=== PATIENT | male | born 1935 | race Caucasian/White ===

== ENCOUNTER 2021-09-22 11:24 | Inpatient (IN) | payer MEDICARE, BC ==
[~2021-09-22] VITALS: Ht 175.3 cm; Wt 104.8 kg
[2021-09-22] MEDS ORDERED: IV NS 0.9% 500 ML BAG IV ONE (11:30)
--- NOTE | 2021-09-22 11:30 | NUR ---
MARIO FROM HOME, SYNCOPAL EPISODE WHILE WALKING TO THE [facility]. FAMILY WHO CHECKED ON HIM CALLED AND NOTED THAT HE WAS ALTERED. LKWT=4 PM YESTERDAY. TO ER BED 1. PT ATTACHED TO MONITOR.
--- NOTE | 2021-09-22 11:36 | NUR ---
BLOOD DRAWN AND SENT TO LAB.
--- NOTE | 2021-09-22 11:47 | NUR ---
COVID SWAB COLLECTED AND SENT TO LAB
--- NOTE | 2021-09-22 11:49 | NUR ---
PT TAKEN TO RADIOLOGY FOR CT
[2021-09-22] MEDS ORDERED: FINA5TAB11 PO (11:54)
[2021-09-22] MEDS ORDERED: FURO-145 PO (11:54)
[2021-09-22] MEDS ORDERED: QUET100T PO (11:54)
[2021-09-22] MEDS ORDERED: LOVA40TA2 PO (11:54)
[2021-09-22] MEDS ORDERED: CHOL100043 PO (11:54)
[2021-09-22] MEDS ORDERED: OLME20TA13 PO (11:54)
[2021-09-22] MEDS ORDERED: POTA8TAB3 PO (11:54)
[2021-09-22] MEDS ORDERED: LEVE500T19 PO (11:54)
[2021-09-22] MEDS ORDERED: VENL150C58 PO (11:54)
[2021-09-22] MEDS ORDERED: OMEP20CA15 PO (11:54)
[2021-09-22] MEDS ORDERED: TAMS-12 PO (11:54)
[2021-09-22 11:57] LABS: BASOPHILS % (AUTO) 0.1 % (0.0-2.0); HEMATOCRIT 39 % (39-51); HEMOGLOBIN 12.8 g/dL (13.5-17.5); LYMPHOCYTES # (AUTO) 0.7 K/uL (0.8-4.8); LYMPHOCYTES % (AUTO) 4.3 % (20.0-44.0); MEAN CORPUSCULAR HGB CONC 33 g/dl (31.0-36.0); MEAN CORPUSCULAR VOLUME 93 fL (80-96); MONOCYTES % (AUTO) 5.9 % (2.0-12.0); NEUTROPHILS # (AUTO) 15.3 K/uL (1.8-8.9); NEUTROPHILS % (AUTO) 89.7 % (43.0-81.0); PLATELET COUNT (AUTO) 176 K/uL (150-450); RED BLOOD CELL COUNT(AUTO) 4.12 MIL/uL (4.5-6.0); WHITE BLOOD COUNT (AUTO) 17.1 K/uL (4.3-11.0)
[2021-09-22] MEDS ORDERED: IV NS 0.9% 1,000 ML BAG IV ONE (12:00)
--- NOTE | 2021-09-22 12:03 | NUR ---
PT BACK FROM RADIOLOGY
--- NOTE | 2021-09-22 12:24 | NUR ---
URINE SAMPLE COLLECTED AND SENT TO LAB
[2021-09-22] MEDS ORDERED: PIPERACILLIN /TAZOBACTAM 3.375 G in IV D5W 50 ML IV ONE (12:30)
[2021-09-22 12:48] LABS: BILIRUBIN,URINE NEGATIVE (NEGATIVE); COLOR,URINE YELLOW (YELLOW); LEUKOCYTE ESTERASE ,URINE NEGATIVE (NEGATIVE); NITRITE, URINE NEGATIVE (NEGATIVE); PROTEIN,URINE TRACE mg/dl (NEGATIVE); UGLUCOSE NEGATIVE (NEGATIVE); UROBILINOGEN,URINE 0.2 EU/dL (0.2)
[2021-09-22 12:51] LABS: ALANINE AMINOTRANSFERASE 19 U/L (12-78); ALBUMIN 3.1 g/dL (3.4-5.0); ALKALINE PHOSPHATASE 46 U/L (46-116); ASPARTATE AMINOTRANSFERASE 13 U/L (15-37); BILIRUBIN,DIRECT 0.1 mg/dL (0.0-0.2); BILIRUBIN,TOTAL 0.3 mg/dL (0.2-1.0); CALCIUM, SERUM 8.5 mg/dL (8.5-10.1); CARBON DIOXIDE 20 mmol/L (21-32); CHLORIDE 103 mmol/L (98-107); CREATININE 2.2 mg/dL (0.6-1.3); GLUCOSE 178 mg/dL (74-106); POTASSIUM 4.8 mmol/L (3.5-5.1); SODIUM SERUM 135 mmol/L (136-145); UREA NITROGEN, BLOOD 27 mg/dL (7-18)
[2021-09-22 13:09] LABS: RBC,URINE 0-2 /HPF (0-2)
[2021-09-22 13:10] LABS: BACTERIA,URINE Rare /HPF (None Seen); SQUAMOUS EPITHELIAL CELL,UR Moderate /HPF (None Seen)
--- NOTE | 2021-09-22 13:45 | NUR ---
TAWANNA, SON, AT BEDSIDE W/ PATIENT.
--- NOTE | 2021-09-22 14:20 | NUR ---
ROOM 308-1
[2021-09-22] MEDS ORDERED: ONDANSETRON HCL/PF 4 MG/2 ML VIAL IVP PRN (14:30)
[2021-09-22] MEDS ORDERED: ACETAMINOPHEN 650 MG/SUPP.RECT RC PRN (14:30)
--- NOTE | 2021-09-22 14:41 | NUR ---
PT REPORT GIVEN TO HEATHER TAVARES.
--- NOTE | 2021-09-22 14:45 | NUR ---
JVOITA QUACH, HAND RIVETER, AT BEDSIDE. PER HAND RIVETER, SHE WANTS TO SEND THE PT TO [facility].
--- NOTE | 2021-09-22 15:14 | NUR ---
NEW ROOM 117-1
[2021-09-22] MEDS ORDERED: IV NS 0.9% 500 ML IV ONE (15:30)
--- NOTE | 2021-09-22 15:30 | NUR ---
RN/ T-CLAUDE REPORT REPORT RECEIVED FROM KAYLA IN THE ER. AWAITING THE PATIENT'S ARRIVAL.
--- NOTE | 2021-09-22 15:44 | NUR ---
PT TRANSPORTED TO TELE FLOOR WITH ACLS PROTOCOLS IN PLACE.
[2021-09-22] MEDS ORDERED: VANCOMYCIN 1.25 GM in IV D5W 250 ML IV ONE (16:00)
[2021-09-22] MEDS: IV NS 0.9% 1,000 ML IV SCH ×2 (16:00→16:39)
[2021-09-22] MEDS ORDERED: PIPERACILLIN /TAZOBACTAM 3.375 G in IV D5W 50 ML IV SCH (18:00)
[2021-09-22] MEDS ORDERED: ZOSYN IVPB 2.25 G in IV D5W 50ml IV SCH (18:00)
[2021-09-22 19:20] VITALS: BP 95/45
--- NOTE | 2021-09-22 19:49 | NUR ---
RN CLOSING NOTE CARE ENDORSED TO PAINTER SKI EDGE. ALL QUESTIONS ANSWERED.
--- NOTE | 2021-09-22 19:55 | NUR ---
RN NOTE PATIENT'S FAMILY MEMBER (SON) WAS CALLED IN REGARD TO PATIENT'S MEDICATION. DUE TO PHARMACY NOT HAVING THE [place] FAMILY WAS ASKED TO BRING IN THE HOME MEDICATION. SON HAS AGREED TO BRING IN THE MEDICATION AND WILL ARRIVE SHORTLY.
[2021-09-22 20:00] VITALS: BP 99/56
--- NOTE | 2021-09-22 20:21 | NUR ---
INFORMED ARSH THAT FAMILY WANTS US TO GIVE FOOD TO PT, CURRENTLY NPO, AND PER ARSH IF NO PROCEDURES PLAN, DO SWALLOW EAL AND IF PT PASS START HM IN CARDIAC DIET.
[2021-09-22] MEDS: LEVETIRACETAM 2000 MG PO SCH (20:38)
[2021-09-22] MEDS: QUETIAPINE FUMARATE 100 MG TABLET PO SCH (20:38)
--- NOTE | 2021-09-22 20:38 | NUR ---
PASSED SWALLOW EVAL, FED PATIENT AT THIS TIME, MEDICATIONS GIVEN.
--- NOTE | 2021-09-22 20:47 | NUR ---
INFORMED ARSH HERNANDEZ FLANGING ROLL OPERATOR AMMUNITION AND EXPLOSIVES HANDLER THAT PATIENT IS IN ZOSYN IV, BUT PT IS ALLERGIC TO PCN, AND PRIOR SHIFT DIDN'T ADMINISTERED, PER FAMILY NO MEDICATIONS WITH PCN, PER ARSH TO FOLLOW UP WITH ID IN AM.
--- NOTE | 2021-09-22 20:50 | NUR ---
ASSESSED PATIENT, HE DENIES ANY CHEST PAIN OR DISCOMFORT.
[2021-09-22 20:57] VITALS: BP 120/73
--- NOTE | 2021-09-22 20:58 | NUR ---
INFORMED ARSH HERNANDEZ TRUCK AND TRANSPORT MECHANIC ASSOCIATE PROFESSOR OF THEOLOGY THAT LAB REPORTED CRITICAL VALUE FOR TROPONIN 5546, PER ARSH TO STAT HEPARIN DRIP WITH BOLUS, ORDER NOTED AND CARRIED OUT.
[2021-09-22] MEDS ORDERED: HEPARIN INFUSION/D5W 500 ML IV PRN (21:30)
[2021-09-22] MEDS ORDERED: HEPARIN INFUSION/D5W 500 ML IV ONE (21:57)
--- NOTE | 2021-09-22 21:58 | NUR ---
REMAINED PHARMACY AGAIN TO VERIFY ORDER FOR HEPARIN, PER PHARMACIST WILL VERY SOON.
[2021-09-22 22:00] VITALS: BP 106/70
[2021-09-22] MEDS ORDERED: HEPARIN SODIUM, PORCINE 5000 UNITS/1 ML VIAL IV ONE (22:00)
--- NOTE | 2021-09-22 22:15 | NUR ---
STARTED HEPARIN DRIP AT THIS TIME, NO S/S OF BLEEDING.
[2021-09-22 23:00] VITALS: BP 99/69
[2021-09-23] VITALS: BP 91/44
--- NOTE | 2021-09-23 01:18 | NUR ---
RECEIVED CRITICAL LAB VALUE FOR TROPONIN 4891, INFORMED ARSH HERNANDEZ ENVELOPE FOLD OPERATOR AND PER HER TO CONTINUE HEPARIN DRIP.
[2021-09-23 04:00] VITALS: BP 130/70
--- NOTE | 2021-09-23 04:46 | NUR ---
INFORMED ARSH CRITICAL TRENDING DOWN RESULTS FOR TROPONIN AT THIS TIME [phone], PER ARSH TO CONTINUE HEPARIN DRIP AND REPEAT TROPONIN LEVEL IN 6HRS, ORDER NOTED AND CARRIED OUT.
[2021-09-23 06:22] LABS: THYROID STIMULATING HORMONE 0.801 uIU/mL (0.358-3.74)
[2021-09-23 06:57] LABS: ALANINE AMINOTRANSFERASE 16 U/L (12-78); ALBUMIN 2.2 g/dL (3.4-5.0); ALKALINE PHOSPHATASE 34 U/L (46-116); ASPARTATE AMINOTRANSFERASE 32 U/L (15-37); BILIRUBIN,TOTAL 0.3 mg/dL (0.2-1.0); CARBON DIOXIDE 22 mmol/L (21-32); CHLORIDE 110 mmol/L (98-107); CREATININE 1.5 mg/dL (0.6-1.3); GLUCOSE 82 mg/dL (74-106); PHOSPHORUS 3.5 mg/dL (2.5-4.9); POTASSIUM 3.5 mmol/L (3.5-5.1); SODIUM SERUM 141 mmol/L (136-145); TOTAL PROTEIN, SERUM 5.5 g/dL (6.4-8.2); UREA NITROGEN, BLOOD 28 mg/dL (7-18)
--- NOTE | 2021-09-23 07:08 | NUR ---
RN NOTES RECEIVED PT ON BED, A/Ox3, NO DISTESS NOTED, ON 2L O2 N/C, O2 SAT WNL, ON HEPARIN DRIP AT 1575 U/HR, NO COMPLICATION NOTED,IVF AT 75CC/HR RUNNING, SR UP x3, CALL LIGHT WITHIN EASY REACH, CONTINUE TO MONITOR.
[2021-09-23 07:20] LABS: BASOPHILS % (AUTO) 0.2 % (0.0-2.0); EOSINOPHILS % (AUTO) 0.2 % (0.0-6.0); HEMATOCRIT 30 % (39-51); HEMOGLOBIN 10.5 g/dL (13.5-17.5); LYMPHOCYTES # (AUTO) 1.1 K/uL (0.8-4.8); LYMPHOCYTES % (AUTO) 14.9 % (20.0-44.0); MEAN CORPUSCULAR HGB CONC 35 g/dl (31.0-36.0); MEAN CORPUSCULAR VOLUME 92 fL (80-96); MONOCYTES # (AUTO) 0.7 K/uL (0.1-1.30); MONOCYTES % (AUTO) 9.1 % (2.0-12.0); NEUTROPHILS # (AUTO) 5.5 K/uL (1.8-8.9); NEUTROPHILS % (AUTO) 75.6 % (43.0-81.0); PLATELET COUNT (AUTO) 97 K/uL (150-450); RED BLOOD CELL COUNT(AUTO) 3.27 MIL/uL (4.5-6.0); WHITE BLOOD COUNT (AUTO) 7.3 K/uL (4.3-11.0)
--- NOTE | 2021-09-23 07:21 | NUR ---
END OF SHIFT REPORT, PATIENT AWAKE AT THIS TIME, A/X X4, AO 2LPM VIA NC WITH O2> 94%, BLOOD PRESSURE STABLE ALL NIGHT, ABLE TO VERBALIZED NEEDS AND CONCERNS, NSR IN TELE MONITOR WITH HR 70-80S DURING THE NIGHT, PATIENT WITH ELEVATED TROPONIN LAST NIGHT, STARTED IN ON HEPARIN DRIP AT 1575 U/ AWAITING FOR PT/PTT, ORDERED SINCE 414, NO S/S BLEEDING, DENIES CHEST PAIN OR DISCOMFORT, BED LOCKED AND IN LOWEST POSITION, SAFETY MEASURES IN PLACE, ENDORSED TO CLIFFORD ROMERO FOR CONTINUATION OF CARE, UPDATE GIVEN TO ROSITA LAURA THIS MORNING, AWARE HE IS ON HEPARIN DRIP,
[2021-09-23] MEDS ORDERED: OMEPRAZOLE 20 MG CAPSULE.DR PO SCH (07:30)
[2021-09-23 08:00] VITALS: BP 123/72
[2021-09-23] MEDS: FINASTERIDE (5 MG) 5 MG TABLET PO SCH (08:44)
[2021-09-23] MEDS: VENLAFAXINE XR 150 MG CAP.SR.24H PO SCH (08:44)
[2021-09-23] MEDS: ATORVASTATIN 10 MG TABLET PO SCH (08:44)
[2021-09-23] MEDS: TAMSULOSIN 0.4 MG CAP.SR.24H PO SCH (08:44)
[2021-09-23] MEDS: PANTOPRAZOLE 40 MG TABLET.DR PO SCH (08:44)
[2021-09-23] MEDS: CHOLECALCIFEROL 1,000 UNIT TABLET (VIT D3) PO SCH (08:45)
[2021-09-23] MEDS ORDERED: PANTOPRAZOLE 40 MG VIAL IV SCH (09:00)
[2021-09-23] MEDS ORDERED: Medication Not On Formulary EA (Cholecalciferol (Vitamin D3) (Vitamin D3) 1,000 UNIT) PO SCH (09:00)
--- NOTE | 2021-09-23 09:00 | NUR ---
RN NOTES FAMILY REQUESTING TO TALK TO PCP, DR GUTIÉRREZ NOTIFIED.
[2021-09-23] MEDS: IV NS 0.9% 1,000 ML IV SCH (10:35)
[2021-09-23 11:40] LABS: BASOPHILS % (MANUAL) 0 % (0.0-2.0); EOSINOPHILS % (MANUAL) 1 % (0-4); LYMPHOCYTES % (MANUAL) 14 % (16-48); MONOCYTES % (MANUAL) 6 % (0-11.0); NEUTROPHILS % (MANUAL) 79 (42-76)
[2021-09-23 12:00] VITALS: BP 121/67
--- NOTE | 2021-09-23 12:00 | NUR ---
RN NOTES PT OUT OF BED TO BATHROOM , NO DISTRESS NOTED, CONTINUE TO MONITOR .
[2021-09-23] MEDS ORDERED: VANCOMYCIN 0.75 GM in IV D5W 250 ML IV SCH (16:00)
[2021-09-23 17:00] VITALS: BP 129/78
[2021-09-23] MEDS: LEVETIRACETAM 2000 MG PO SCH (18:00)
--- NOTE | 2021-09-23 18:00 | NUR ---
RN NOTES NO SIGNFICANT CHANGES NOTED ON THIS SHIFT, PT DENIES ANY CHEST PAIN , NO DISTRESS NOTED , WILL ENDORSE TO APPLICATION SYSTEMS ADMINISTRATOR NURSE FOR CONTINUITY OF CARE.
[2021-09-23] MEDS: QUETIAPINE FUMARATE 100 MG TABLET PO SCH (18:04)
--- NOTE | 2021-09-23 21:05 | NUR ---
DRYING OVEN ATTENDANT OPENING NOTES: RECEIVED PATIENT AWAKE IN BED A/OX4, ON O2 AT 2LPM VIA NC, ON TELE MONITORING WITH HR 70BPM,WITH IV ACCESS ON LAC #22G AND R HAND #22G, INTACT AND PATENT, RUNNING NS AT 75ML/HR. DENIES CHEST PAIN OR DISCOMFORT AT THIS TIME, BED LOCKED AND IN LOWEST POSITION, SAFETY MEASURES IN PLACE, CALL LIGHT WITHIN REACH, WILL CONTINUE TO MONITOR THROUGHOUT THE SHIFT.
[2021-09-23 22:05] VITALS: BP 129/74
--- NOTE | 2021-09-23 22:10 | NUR ---
RN NOTE TRANSFERRED PT TO 3W FOLLOWING ALS PROTOCOL REPORT GIVEN AT RM 322-2 BEDSIDE TO HEATHER DEE.
--- NOTE | 2021-09-23 22:30 | NUR ---
ORTHOPEDIC RADIOLOGIC TECHNOLOGISTSUPERVISOR HOT DIP PLATING NOTE PATIENT TRANSFERRED FROM [facility] IN STABLE CONDITION, VITAL SIGNS WNL. PT AWAKE IN BED A/OX 3, PT ABLE TO MAKE NEEDS KNOWN. PT DENIES PAIN AT THIS TIME. PT STABLE ON O2 AT 2LPM VIA NC, NO S/S OF DISTRESS OR SOB NOTED, BREATHING EVEN AND UNLABORED. PT ON EXTERNAL CARDIAC MONITORING READING SINUS RHYTHM, HR: 68. IV ACCESS ON LAC #18G AND R HAND #22G, INTACT AND PATENT, RUNNING NS AT 75ML/HR. SAFETY MEASURES IN PLACE: BED LOCKED IN LOWEST POSITION, SIDE RAILS UP X 2, TABLE AND CALL LIGHT WITHIN REACH. WILL CONTINUE TO MONITOR PATIENT
[2021-09-24] VITALS: BP 138/76
[2021-09-24 04:00] VITALS: BP 154/88
[2021-09-24 06:09] LABS: CALCIUM, SERUM 7.8 mg/dL (8.5-10.1); CARBON DIOXIDE 24 mmol/L (21-32); CHLORIDE 109 mmol/L (98-107); CREATININE 1.5 mg/dL (0.6-1.3); GLUCOSE 109 mg/dL (74-106); POTASSIUM 4.2 mmol/L (3.5-5.1); SODIUM SERUM 141 mmol/L (136-145); UREA NITROGEN, BLOOD 24 mg/dL (7-18)
[2021-09-24] MEDS: IV NS 0.9% 1,000 ML IV SCH (06:49)
--- NOTE | 2021-09-24 07:05 | NUR ---
BOWLING ALLEY ATTENDANT OPENING NOTE: RECEIVED PATIENT AWAKE IN BED A/OX3, ABLE TO MAKE NEEDS KNOWN. DENIES PAIN OR DISCOMFORT AT THIS TIME. ON O2 AT 2LPM VIA NC, NO S/S OF RESPIRATORY DISTRESS. ON TELE MONITORING, NSR, WITH HR 71 BPM. IV ACCESS ON LAC #18G AND R HAND #22G WITH NS RUNNING AT 75ML/HR. BOTH IV SITES PATENT AND FLUSHING WELL WITH NO S/S OF PHLEBITIS AND INFILTRATION. PT. ON BED REST. SAFETY AND FALL PRECAUTIONS IN PLACE: BED LOCKED AND IN LOWEST POSITION, CALL LIGHT WITHIN REACH, BED ALARM ON. WILL CONTINUE TO MONITOR PT. FOR ANY CHANGES.
--- NOTE | 2021-09-24 07:45 | NUR ---
SHIP PURSER CLOSING NOTE PATIENT AWAKE IN BED, ALERT/ORIENTED X 3, PT ABLE TO MAKE NEEDS KNOWN. PT STABLE ON 2 LPM OF OXYGEN VIA NASAL CANNULA, NO S/S OF DISTRESS OR SOB NOTED, BREATHING EVEN AND UNLABORED. RIGHT HAND IV ACCESS INTACT AND INFUSING NS @ 75 ML/HR, LAC IV ACCESS INTACT AND SALINE LOCKED. PATIENT ON EXTERNAL HYDROCHLORIC AREA SUPERVISOR READING SINUS RHYTHM, HR: 65. SAFETY MEASURES IN PLACE: CALL LIGHT WITHIN REACH, SIDE RAILS UP X 2, BED LOCKED IN LOWEST POSITION, BED ALARM ON. ENDORSED TO DAYSHIFT NURSE FOR CONTINUITY OF CARE
[2021-09-24] MEDS: PANTOPRAZOLE 40 MG TABLET.DR PO SCH (08:53)
[2021-09-24] MEDS: ATORVASTATIN 10 MG TABLET PO SCH (08:54)
[2021-09-24] MEDS: CHOLECALCIFEROL 1,000 UNIT TABLET (VIT D3) PO SCH (08:54)
[2021-09-24] MEDS: FINASTERIDE (5 MG) 5 MG TABLET PO SCH (08:54)
[2021-09-24] MEDS: TAMSULOSIN 0.4 MG CAP.SR.24H PO SCH (08:54)
[2021-09-24] MEDS: VENLAFAXINE XR 150 MG CAP.SR.24H PO SCH (08:54)
[2021-09-24] MEDS ORDERED: ATOR10TA PO (11:09)
--- NOTE | 2021-09-24 13:31 | NUR ---
PASSENGER CAR UPHOLSTERER APPRENTICECUSTOMER CARE TEAM COACH NOTE: PATIENT DC'ED BACK TO HOME VIA PRIVATE TRANSPORTATION. VS ARE STABLE. ALERT/ORIENTED X 3. NO COMPLAINTS OF PAIN/DISCOMFORT AT THIS TIME. PT STABLE ON ROOM AIR. NO S/S OF DISTRESS OR SOB NOTED. IV ACCESS REMOVED, PRESSURE DRESSING APPLIED. NO S/S OF BLEEDING. TAWANNA (SON) SIGNED WRITTEN DC INSTRUCTIONS AND PT. BELONGING LIST. EDUCATION MATERIALS AND NEW/CONTINUED/DISCONTINUED MED LIST PROVIDED AND EXPLAINED TO PT. AND SON. THEY VERBALIZED UNDERSTANDING. PT. LEFT THE UNIT AMBULATORY WITH ROSITA STACY AT 1330.
== END 2021-09-24 13:45 | disposition home or self-care (01) | DRG 280 ==
LOC: ER 11:26 → TELE1 15:30 → TELE-TD 16:01 → TELE1 09-23 16:09 → TELE 09-23 22:04
PROVIDERS: ADMIT Registered Nurse; ATTEND Nurse Practitioner Acute Care
DX: I95.1 Orthostatic hypotension (principal); G92.8 Other toxic encephalopathy; I21.A1 Myocardial infarction type 2; J96.01 Acute respiratory failure with hypoxia; N17.0 Acute kidney failure with tubular necrosis; I13.0 Hypertensive heart and chronic kidney disease with heart failure and stage 1 through stage 4 chronic kidney disease, or unspecified chronic kidney disease; I50.32 Chronic diastolic (congestive) heart failure; E87.2 Acidosis; E87.1 Hypo-osmolality and hyponatremia; Z20.822 Contact with and (suspected) exposure to COVID-19; E78.5 Hyperlipidemia, unspecified; K21.9 Gastro-esophageal reflux disease without esophagitis; N18.9 Chronic kidney disease, unspecified; G40.909 Epilepsy, unspecified, not intractable, without status epilepticus; Z79.899 Other long term (current) drug therapy; N40.0 Benign prostatic hyperplasia without lower urinary tract symptoms; E66.9 Obesity, unspecified; Z68.34 Body mass index [BMI] 34.0-34.9, adult; E11.22 Type 2 diabetes mellitus with diabetic chronic kidney disease; E88.09 Other disorders of plasma-protein metabolism, not elsewhere classified; G47.33 Obstructive sleep apnea (adult) (pediatric); E86.0 Dehydration; G90.8 Other disorders of autonomic nervous system; I25.10 Atherosclerotic heart disease of native coronary artery without angina pectoris; Z96.653 Presence of artificial knee joint, bilateral
CPT/HCPCS: 36415; 70450-TC; 71045-TC; 76770-TC; 80048-TC; 80053-TC; 80076-TC; 80177; 80202-TC; 81001; 82962-TC; 83605-TC; 83735-TC; 84100-TC; 84443-TC; 84484-TC; 85025-TC; 85610-TC; 85730-TC; 87040-TC; 87081-TC; 87086-TC; 93307-TC; 93880-TC; 94799-TC; C9803; G0378; J1644; J2543; J3370; J7030; J7040; J7060